=== PATIENT | male | born 1945 | race Caucasian/White ===

== ENCOUNTER 2018-02-09 11:44 | Emergency (ER) | payer BC, SELFPAY ==
[2018-02-09 11:46] VITALS: BP 189/100; PULSE 69; RESP 18; TEMP 36.6; O2SAT 96; BMI 32.5
--- NOTE | 2018-02-09 12:48 | ED.DCSUM_ITS ---
- ER Visit Summary Date of Service: 02/09/18 Chief Complaint: [] Right low lumbar back pain for about 2 months History of Present Illness: The patient is a 72 M [] as above for months he basically indicates this began when he inadvertently stepped awkwardly and jammed his right lower extremity he had pain almost immediately to the right low buttock SI joint region he has been seen by his family physician his chiropractor he is on different medications he has had limited improvement with those medications, he scheduled to see her back surgeon next week he indicates the pain has not improved and he wants something for the pain. 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 The midline lumbar back is nontender he is able to stand and walk without difficulty he can heel raise toe raise and knee bend without difficulty and he absolutely assures me he is having no bowel or bladder complaints or perineal anesthesia Test Results: [] Emergency Department Course and Treatment: [] Appears to be mechanical musculoskeletal I explained we could obtain x-rays but he did defer those he simply wants something for the pain, at this time he will be given morphine and Toradol Norflex he will be discharged on Norflex he will be given 5 [place] tablets to use as rescue medicine and otherwise he will follow-up his family physicians and the back surgery schedule see and return for change in symptoms Treatment Plan: [] Disposition: [] Home stable Impression: [] Persistent right lumbar back pain/SI pain This note was generated with [employer] dictation software. It may contain incorrect words, spelling, and punctuation that were not noted in review of the chart prior to signing ED Disposition - Plan for ED Patient: Chief Complaint: Back Referrals: Enrique Holloway MD [Primary Care Provider] -
--- NOTE | 2018-02-09 12:48 | ED.DEP ---
ED Disposition - Plan for ED Patient: Chief Complaint: Back Instructions: ED Spasm Back No Trauma Prescriptions: Hydrocodone Bitart/Apap 5-325 [[place] 5/325] 1 tab PO Q4H PRN PRN #7 tab PRN Reason: Pain Referrals: Enrique Holloway MD [Primary Care Provider] -
[2018-02-09] MEDS: Orphenadrine 60 MG/2 ML Ampul IM (12:56)
[2018-02-09] MEDS: Ketorolac 60 MG/2 ML Vial IM (12:56)
[2018-02-09] MEDS: Morphine 4 MG/ML Syringe 8 MG SC (12:56)
[2018-02-09 14:17] VITALS: BP 140/62; PULSE 74; RESP 18; O2SAT 98
== END 2018-02-09 14:18 | disposition home or self-care (01) ==
PROVIDERS: Emergency Provider Emergency Medicine; Family Provider Family Medicine; PCP Family Medicine
DX: M54.5 Low back pain (principal); M53.3 Sacrococcygeal disorders, not elsewhere classified; I10 Essential (primary) hypertension; Z79.899 Other long term (current) drug therapy
CPT/HCPCS: 96372; 99282

== ENCOUNTER 2018-02-10 10:42 | Emergency (ER) | payer BC, SELFPAY ==
[2018-02-10 10:42] VITALS: BP 159/80; PULSE 64; RESP 18; TEMP 37.1; O2SAT 92; BMI 32.6
--- NOTE | 2018-02-10 11:36 | RAD_ITS ---
STUDY: X-RAY - LUMBAR SPINE REASON FOR EXAM: Male, 72 years old. Lumbar strain and back pain TECHNIQUE: 2 view(s) of the lumbar spine were obtained. COMPARISON: None FINDINGS: Mild wedging of the lower thoracic vertebrae. Disc space narrowing at multiple levels. Multilevel facet arthrosis. Hypertrophy of the spinous processes. Vascular calcifications are seen. Degenerative changes of the sacroiliac joints. Pelvic phleboliths. Vascular calcifications of the abdominal aorta IMPRESSION: Lumbar spondylotic changes. No evidence for acute lumbar spine fractures. Electronically Signed: Tobias Castillo, at 12:18 EDT Tel , Service support , RAD/Lumbar Spine 2 or 3 Views
[2018-02-10] MEDS: morphine 10 MG/ML Syringe SC (11:49)
[2018-02-10] MEDS: Orphenadrine 60 MG/2 ML Ampul IM (11:49)
[2018-02-10] MEDS: Ketorolac 60 MG/2 ML Vial IM (11:50)
--- NOTE | 2018-02-10 11:50 | ED.VISSUMM ---
- ER Visit Summary Date of Service: 02/10/18 Chief Complaint: [] Right low lumbar back pain at level of SI joint, please see the patient's record from yesterday History of Present Illness: The patient is a 72 M [] had 2 month history of right low lumbar back pain level of SI joint related to a near fall where he jammed his right leg he has been seen by his physicians chiropractors etc. he scheduled to see a back surgeon soon. He was seen in the emergency department yesterday unremarkable evaluation he reports his treatment improved his symptoms, however when he woke this morning he had persistence of the pain he bent over to wash his face he actually felt better bending over when he stood up he had increasing pain because his pain meds were working he came back to the emergency department. He has had no new symptoms he has no symptoms of cauda equina, the pain again is right at the level of SI joint does not radiate he has no bowel or bladder complaints he is walking around the room without difficulty he has no abdominal pain no history of direct trauma, he has prior history for lumbar back elements related to the work that he does Physical Examination: [] Around the room holding his right buttock area head neck chest unremarkable the lungs are clear the abdomen soft nontender the midline CT lumbar spine really are not tender his pain focus is at the SI joint this area is unremarkable with no skin lesions he has normal strength his lower extremities and again he denies perineal anesthesia or bowel or bladder difficulties Test Results: [] Emergency Department Course and Treatment: [] Patient had just been placed on pain meds by his physicians apparently those are not working we did add [place] yesterday at this time will add an x-ray of the lumbar spine Toradol morphine Norflex 3 shows DJD nothing acute explained all the above to him at this time will have him stop all of his meds for back pain, he will be started on Naprosyn and Norflex Percocet as a rescue medicine and follow-up with his back pain physicians and return for change in symptoms he agrees Treatment Plan: [] Disposition: [] Stable Impression: [] Right low lumbar back pain at level of SI joint for a few months This note was generated with [employer] dictation software. It may contain incorrect words, spelling, and punctuation that were not noted in review of the chart prior to signing ED Disposition - Plan for ED Patient: Chief Complaint: Back Referrals: Enrique Holloway MD [Primary Care Provider] -
--- NOTE | 2018-02-10 11:54 | ED.DEP ---
ED Disposition - Plan for ED Patient: Chief Complaint: Back Instructions: ED Spasm Back No Trauma Prescriptions: Oxycodone HCl/Acetaminophen [Percocet 5/325] 1 tab PO Q6H PRN PRN #12 tab PRN Reason: Pain Naproxen [Naprosyn] 500 mg PO BID PRN #20 tab Orphenadrine [Norflex ER] 100 mg PO BID #10 tab Referrals: Enrique Holloway MD [Primary Care Provider] -
[2018-02-10 13:30] VITALS: BP 158/79; PULSE 65; RESP 18
== END 2018-02-10 13:32 | disposition home or self-care (01) ==
PROVIDERS: Emergency Provider Emergency Medicine; Family Provider Family Medicine; PCP Family Medicine
DX: M54.5 Low back pain (principal); Z79.899 Other long term (current) drug therapy
CPT/HCPCS: 72100; 96372; 99282